=== PATIENT | female | born 2000 | race Two or more races ===

== ENCOUNTER 2020-11-03 13:46 | Emergency (ER) | payer OTHER ==
[~2020-11-03] VITALS: Ht 152.4 cm; Wt 67.1 kg
[~2020-11-03 13:46] MED LIST: PAIN RELIEVER500 M4
== END 2020-11-03 19:52 | disposition home or self-care (01) ==
LOC: ER 13:46
DX: J02.8 Acute pharyngitis due to other specified organisms (principal)

== ENCOUNTER 2021-11-09 11:02 | Emergency (ER) | payer OTHER ==
[~2021-11-09] VITALS: Ht 152.4 cm; Wt 59.9 kg
[2021-11-09] MEDS ORDERED: ZOVIRAX400 MG PO (12:51)
== END 2021-11-09 12:57 | disposition home or self-care (01) ==
LOC: ER 11:02
DX: A60.00 Herpesviral infection of urogenital system, unspecified (principal)